=== PATIENT | male | born 1975 | race Caucasian/White ===

== ENCOUNTER 2017-03-27 21:23 | Inpatient (IN) | payer OTHER, SELFPAY ==
[2017-03-27 22:02] LABS: PTT 27.3 SEC (22.9-36.1); Prothrombin Time 13.3 SEC (12.0-14.7)
[2017-03-27 22:06] LABS: ALT (SGPT) 27 U/L (8-55); AST (SGOT) 32 U/L (5-34); Acetaminophen Less than 6.0 mcg/mL (10.0-30.0); Alkaline Phosphatase 117 U/L (40-150); Anion Gap 17 mmol/L (10-20); BUN (Urea Nitrogen) 4 mg/dL (8.9-20.6); Bilirubin, Total 0.3 mg/dL (0.2-1.2); Calc. Creatinine Clearance 0 mL/min (70-130); Calcium 9.4 mg/dL (7.8-10.44); Carbon Dioxide 22 mmol/L (22-29); Chloride 105 mmol/L (98-107); Estimated GFR-MDRD Greater than 90; Globulin 3.7 g/dL (2.4-3.5); Salicylate Less than 8.0 mg/dL (15.0-30.0)
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
[2017-03-27 22:30] LABS: #Basophils 0.1 thou/uL (0.0-0.2); #Eosinphils 0.1 thou/uL (0.0-0.7); #Monocytes 0.6 thou/uL (0.11-0.59); #Neutrophils 5.3 thou/uL (1.40-6.50); %Basophils 1.1 % (0.0-1.0); %Eosinophils 0.8 % (0.0-10.0); %Monocytes 6.9 % (0.0-10.0); Hematocrit 52.6 % (42.0-52.0); Macrocytosis SLIGHT = 6-15 cells (100X) (0-5/hpf); Mean Platelet Volume 6.5 fL (7.4-10.4); Red Blood Cell (RBC) Count 4.86 mill/uL (4.70-6.10)
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
[2017-03-27] MEDS ORDERED: Ketorolac Tromethamine 30 MG/ML VIAL ONE ×2 (23:47→23:48)
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
[2017-03-28] MEDS ORDERED: Dextrose 50% Abboject 50 ML SYRINGE SLOW IVP PRN (00:50)
[2017-03-28] MEDS ORDERED: Morphine Sulfate 2 MG/ML SYRINGE IVP PRN (00:50)
[2017-03-28] MEDS ORDERED: Ondansetron ODT 4 MG TAB PO PRN (00:50)
[2017-03-28] MEDS ORDERED: Acetaminophen 1,000 MG in Premix Bag 1 BAG IVPB SCH (00:50)
[2017-03-28] MEDS ORDERED: Ondansetron HCl/PF 4 MG/2 ML Vial IVP PRN (00:50)
[2017-03-28] MEDS ORDERED: Promethazine HCl 25 MG/ML VIAL IM PRN ×2 (00:50)
[2017-03-28] MEDS ORDERED: Dextrose 5% in Water 1,000 ML IV PRN (00:50)
[2017-03-28] MEDS: Sodium Chloride 0.9% 1,000 ML IV SCH ×3 (02:19→17:27)
[2017-03-28] MEDS: Clindamycin/D5W 900 MG in Premix Bag 1 BAG IVPB SCH ×3 (05:21→22:01)
[2017-03-28 06:16] LABS: #Basophils 0.1 thou/uL (0.0-0.2); #Eosinphils 0.1 thou/uL (0.0-0.7); #Lymphocytes 3.2 thou/uL (1.20-3.40); #Neutrophils 5.4 thou/uL (1.40-6.50); %Basophils 0.8 % (0.0-1.0); %Eosinophils 0.7 % (0.0-10.0); %Lymphocytes 32.8 % (21.0-51.0); %Monocytes 9.9 % (0.0-10.0); Hematocrit 48.9 % (42.0-52.0); Mean Platelet Volume 6.2 fL (7.4-10.4); Red Blood Cell (RBC) Count 4.48 mill/uL (4.70-6.10); White Blood Cell (WBC) Count 9.7 thou/uL (4.8-10.8)
[2017-03-28 06:39] LABS: Anion Gap 13 mmol/L (10-20); BUN (Urea Nitrogen) Less than 4 mg/dL (8.9-20.6); Calc. Creatinine Clearance 108 mL/min (70-130); Calcium 8.6 mg/dL (7.8-10.44); Carbon Dioxide 25 mmol/L (22-29); Chloride 110 mmol/L (98-107); Estimated GFR-MDRD Greater than 90
[2017-03-28] MEDS: Famotidine/PF 20 mg/2ml Vial SLOW IVP SCH ×2 (08:24→20:38)
[2017-03-28] MEDS: Famotidine 20 MG TAB PO SCH ×2 (08:26→20:39)
[2017-03-28] MEDS ORDERED: Ketorolac Tromethamine 30 MG/ML VIAL IVP SCH (11:15)
[2017-03-28] MEDS: Ketorolac Tromethamine 30 MG/ML VIAL IVP SCH (17:29)
[2017-03-29] MEDS: Ketorolac Tromethamine 30 MG/ML VIAL IVP SCH ×5 (00:03→23:18)
[2017-03-29] MEDS: Sodium Chloride 0.9% 1,000 ML IV SCH ×4 (02:41→21:36)
[2017-03-29] MEDS: Clindamycin/D5W 900 MG in Premix Bag 1 BAG IVPB SCH ×3 (06:01→21:35)
[2017-03-29] MEDS: Famotidine/PF 20 mg/2ml Vial SLOW IVP SCH ×2 (08:11→21:35)
[2017-03-29] MEDS: Famotidine 20 MG TAB PO SCH ×2 (09:49→21:35)
[2017-03-29] MEDS ORDERED: Clindamycin/D5W 900 mg/50 ml Premix Bag ONE (14:15)
[2017-03-29] MEDS ORDERED: Bacitracin Zinc Ointment 30 gm TUBE ONE (15:05)
[2017-03-29] MEDS ORDERED: Chlorhexidine Gluconate 15 ML UDCUP SSP ONE (15:05)
[2017-03-29] MEDS ORDERED: Lidocaine 1% w/Epinephrine 1:200K 30 ML VIAL ONE (15:05)
[2017-03-29] MEDS ORDERED: Fentanyl 100 MCG/2 ML VIAL ONE ×3 (15:17→20:41)
[2017-03-29] MEDS ORDERED: Midazolam HCl 2 mg/2 ml Vial ONE (15:17)
[2017-03-29] MEDS ORDERED: Lidocaine 1% PF 5 ML VIAL ONE (15:46)
[2017-03-29] MEDS ORDERED: Dexamethasone 20 MG/5 ML VIAL ONE (15:46)
[2017-03-29] MEDS ORDERED: Propofol 200 MG/20 ML VIAL ONE (15:46)
[2017-03-29] MEDS ORDERED: Succinylcholine Chloride 20 MG/ML 10 ml SYRINGE FS ONE (15:46)
[2017-03-29] MEDS ORDERED: Oxymetazoline HCl 0.05% ( 15 ML ) ONE (15:51)
[2017-03-29] MEDS ORDERED: Phenylephrine 1% Nasal Spray 15 ML BOT ONE (15:54)
[2017-03-29] MEDS ORDERED: Meperidine HCl/PF 25 MG/ML VIAL ONE (20:34)
[2017-03-29] MEDS ORDERED: Promethazine HCl 25 MG/ML VIAL IM PRN (20:37)
[2017-03-29] MEDS ORDERED: Ondansetron HCl/PF 4 MG/2 ML Vial IVP PRN (20:37)
[2017-03-29] MEDS ORDERED: Promethazine HCl 25 MG/ML VIAL SLOW IVP PRN (20:37)
[2017-03-29] MEDS: Chlorhexidine Gluconate 15 ML UDCUP SSP SCH (22:01)
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
[2017-03-30] MEDS: Ketorolac Tromethamine 30 MG/ML VIAL IVP SCH ×2 (05:03→13:28)
[2017-03-30] MEDS: Clindamycin/D5W 900 MG in Premix Bag 1 BAG IVPB SCH ×2 (05:03→14:05)
[2017-03-30] MEDS: Sodium Chloride 0.9% 1,000 ML IV SCH (05:03)
--- NOTE | 2017-03-30 08:03 | CT ---
PRELIMINARY REPORT/[facility]/EMERGENCY AFTER HOURS PROCEDURE: EXAM: CT Maxillofacial Without Intravenous Contrast CLINICAL HISTORY: 42 years old, male; Condition or disease; Other: Mandibular FX; Prior surgery; Surgery date: Postope rative (0-2 days); Surgery type: S/P transfacial orif bilateral mandibular FX TECHNIQUE: Axial computed tomography images of the face without intravenous contrast. Coronal and sagittal reformatted images were created and reviewed. COMPARISON: No relevant prior studies available. FINDINGS: Status post open reduction/internal fixation of bilateral mandibular fractures. Mild residual angula tion of the left-sided findings fracture fragment directed medially. Residual air and small left-mary ann ed hematoma/fluid noted. Fracture lines remain visible in the horizontal rami bilaterally extending thr ough the alveolar nerve canals The temporomandibular joints are grossly intact. The orbits are intact. There is mild mucosal thicke galindo in the paranasal sinus. Secretions in the left sphenoid sinus noted The visualized intracranial contents are unremarkable IMPRESSION: Status post internal fixation of bilateral mandibular fractures with mild residual angulation of the leftsided ascending ramus fragment as noted Thank you for allowing us to participate in the care of your patient. Dictated and Authenticated by: Darrell Tirado MD 03/30/2017 12:35 AM Central Time ([place] \T\ [place]) FINAL REPORT EMERGENCY AFTER HOURS CT OF THE FACE WITHOUT CONTRAST: Date: 03/29/17 COMPARISON: 03/27/17. FINDINGS/IMPRESSION: I agree with the findings and impression given in the preliminary report per [facility] physician. The pat ient is status post open reduction and internal fixation of the bilateral mandibular fractures with plates and screws. There is better alignment of the fractures compared to the preoperative CT. POS: [facility]
[2017-03-30] MEDS: Famotidine/PF 20 mg/2ml Vial SLOW IVP SCH (08:11)
[2017-03-30] MEDS: Famotidine 20 MG TAB PO SCH (08:48)
[2017-03-30] MEDS: Chlorhexidine Gluconate 15 ML UDCUP SSP SCH (09:21)
[2017-03-30] MEDS ORDERED: traMADol HCl 50 MG TAB PO PRN ×2 (09:38)
[2017-03-30] MEDS ORDERED: Acetaminophen 500 MG TAB PO PRN (09:40)
[2017-03-30] MEDS ORDERED: Acetaminophen/Codeine Oral Solution PO PRN (12:17)
[2017-03-30 12:23] VITALS: BP 111/69; TEMP 98.2
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
--- NOTE | 2017-03-31 14:59 | EKG ---
Test Reason : Blood Pressure : / mmHG Vent. Rate : 100 BPM Atrial Rate : 100 BPM P-R Int : 122 ms QRS Dur : 096 ms QT Int : 348 ms P-R-T Axes : 086 078 066 degrees QTc Int : 448 ms Normal sinus rhythm Normal ECG Confirmed by LARISSA NAVAS D.O. ([id number]), general expeditor STEPHANIE MOE ([id number]) on 03/31/2017 2:59:04 PM Referred By: Confirmed By:LARISSA NAVAS D.O.
== END 2017-03-30 16:55 | disposition home or self-care (01) | DRG 131 ==
LOC: ERS 21:23 → SURG A 03-28 00:29
PROVIDERS: ADMIT Specialist; ATTEND Specialist
PROC: 0NSV04Z Reposition Left Mandible with Internal Fixation Device, Open Approach (ICD-10-PCS; principal; 2017-03-29)
PROC: 0NST04Z Reposition Right Mandible with Internal Fixation Device, Open Approach (ICD-10-PCS; 2017-03-29)
PROC: 0CQ40ZZ Repair Buccal Mucosa, Open Approach (ICD-10-PCS; 2017-03-29)
DX: S02.602A Fracture of unspecified part of body of left mandible, initial encounter for closed fracture (principal); S06.0X1A Concussion with loss of consciousness of 30 minutes or less, initial encounter; S02.601A Fracture of unspecified part of body of right mandible, initial encounter for closed fracture; S02.622A Fracture of subcondylar process of left mandible, initial encounter for closed fracture; S02.66XA Fracture of symphysis of mandible, initial encounter for closed fracture; S01.502A Unspecified open wound of oral cavity, initial encounter; Y04.2XXA Assault by strike against or bumped into by another person, initial encounter; Y92.481 Parking lot as the place of occurrence of the external cause; F10.129 Alcohol abuse with intoxication, unspecified; F17.290 Nicotine dependence, other tobacco product, uncomplicated; G89.29 Other chronic pain; M79.604 Pain in right leg; K08.109 Complete loss of teeth, unspecified cause, unspecified class
CPT/HCPCS: 36415; 70450; 70486; 71010; 72125; 80048; 80053; 80307; 85025; 85610; 85730; 86850; 86900; 86901; 93005; 96365; 96375; 96376; C1713; J0131; J1100; J1885; J2001; J2175; J2250; J2270; J2405; J2704; J3010; J3490; S0028

== ENCOUNTER 2017-04-02 17:01 | Inpatient (IN) | payer OTHER ==
[2017-04-02] MEDS ORDERED: Iopamidol 370 76% 100 ML VIAL ONE (17:06)
[2017-04-02 17:34] LABS: PTT 29.7 SEC (22.9-36.1); Prothrombin Time 12.8 SEC (12.0-14.7)
[2017-04-02 17:35] LABS: #Basophils 0.1 thou/uL (0.0-0.2); #Eosinphils 0.2 thou/uL (0.0-0.7); #Lymphocytes 2.2 thou/uL (1.20-3.40); #Monocytes 1.2 thou/uL (0.11-0.59); #Neutrophils 13.1 thou/uL (1.40-6.50); %Basophils 0.7 % (0.0-1.0); %Eosinophils 1.2 % (0.0-10.0); %Lymphocytes 12.8 % (21.0-51.0); %Monocytes 7.2 % (0.0-10.0); Anisocytosis SLIGHT = 6-15 cells (100X) (0-5/hpf); Hematocrit 40.3 % (42.0-52.0); Macrocytosis SLIGHT = 6-15 cells (100X) (0-5/hpf); Mean Platelet Volume 7.9 fL (7.4-10.4); Red Blood Cell (RBC) Count 4.01 mill/uL (4.70-6.10); White Blood Cell (WBC) Count 16.7 thou/uL (4.8-10.8)
[2017-04-02 18:15] LABS: Anion Gap 14 mmol/L (10-20); BUN (Urea Nitrogen) 10 mg/dL (8.9-20.6); Calc. Creatinine Clearance 0 mL/min (70-130); Calcium 9.2 mg/dL (7.8-10.44); Carbon Dioxide 25 mmol/L (22-29); Chloride 101 mmol/L (98-107); Estimated GFR-MDRD Greater than 90
--- NOTE | 2017-04-02 20:08 | CT ---
POST CONTRAST SOFT TISSUE NECK CT: Comparison: Facial bone CT, 03-30-17, 03-27-15 History: Possible infection, swelling of the neck. Fluid drainage when dressing came off. Patient don s undergone surgery. Technique: Post contrast soft tissue neck CT performed in the axial plane. Reformatted images are bowers bmitted for interpretation. FINDINGS: Visualized brain parenchyma is unremarkable. Adequate aeration of the visualized sinuses and mastoid air cells. There is mucosal prominence at the level of the nasopharynx. No obvious masses in the oral cavity. M idline fatty roof of the tongue is preserved. Epiglottis has a normal caliber. Preepiglottic fat dem onstrates mild edema. There is edematous change in the left submandibular gland. There is mild edematous change in the lef t submandibular gland. The right submandibular gland and carotid gland are unremarkable. Thyroid gla nd is also unremarkable. Symmetric attenuation of sternocleidomastoid muscles. There are enlarged bilateral soft tissue neck lymph nodes. Circulation Man large left level II lymph node measures 1.3 x 0.9. Enlarged right level II lymph node measures 1.0 x 1.0 cm. Grossly, the great vessels of the neck are patent. Cervical spine vertebral body height is maintained. No fracture or malalignment. No significant cent ral canal stenosis. Evaluation is limited due to technique. Upper mediastinum and lung apices are unremarkable for acute process. Nonspecific emphysematous brenner ges in the lung apices and bilateral apical scarring. There is evidence of internal fixation hardware along the left and right mandible. Mandibular fractu re lucencies are present. There is extensive subcutaneous emphysema and fluid involving the soft tis sues overlying the mandible. Findings are presumed to be post-operative. The fluid collections along the midline mandibular soft tissue measures 5.6 x 2.1 cm. There is incomplete peripheral enhancemen t. Small foci of air noted. Fluid and air tracks along multiple fascial planes into the right and le ft submandibular region, left street and building decorator space. There is edema involving the left, and to a lesser e xtent, left street and building decorator muscles. Findings are presumed to be post-operative. However, an infected flu id collection cannot be excluded. There is induration of the overlying subcutaneous fat. There is internal fixation and hardware at the level of the left mandibular ramus. IMPRESSION: 1. Redemonstration of the mandibular fracture with interval instrumentation and placement of interna l fixation hardware. 2. Extensive edema, fluid, and air in the mandibular and facial soft tissues which may represent pos t-surgical change. However, there is some peripheral enhancement. The possibility of an infected flu id collection cannot be completely excluded. Clinical correlation is essential. 3. Enlarged bilateral soft tissue neck lymph nodes which are presumed to be reactive. POS: [facility]
[2017-04-02] MEDS ORDERED: Fentanyl 100 MCG/2 ML VIAL ONE (20:35)
[2017-04-02] MEDS ORDERED: Clindamycin/D5W 900 mg/50 ml Premix Bag ONE (20:54)
[2017-04-02] MEDS ORDERED: Dexamethasone 20 MG/5 ML VIAL ONE (21:06)
[2017-04-02] MEDS ORDERED: Ondansetron HCl/PF 4 MG/2 ML Vial ONE (21:06)
[2017-04-02] MEDS ORDERED: Succinylcholine Chloride 20 MG/ML 10 ml SYRINGE FS ONE (21:06)
[2017-04-02] MEDS ORDERED: Ketorolac Tromethamine 30 MG/ML VIAL ONE (21:06)
[2017-04-02] MEDS ORDERED: Lidocaine 2% PF 10 ML AMP (For Epidural Use) ONE (21:06)
[2017-04-02] MEDS ORDERED: Bacitracin Zinc Ointment 30 gm TUBE ONE (21:12)
[2017-04-02] MEDS ORDERED: Promethazine HCl 25 MG/ML VIAL IM PRN (21:49)
[2017-04-02] MEDS ORDERED: Promethazine HCl 25 MG/ML VIAL SLOW IVP PRN (21:49)
[2017-04-02] MEDS ORDERED: Ondansetron HCl/PF 4 MG/2 ML Vial IVP PRN (21:49)
[2017-04-02] MEDS ORDERED: Ondansetron HCl/PF 4 MG/2 ML Vial SLOW IVP PRN (22:00)
[2017-04-02] MEDS ORDERED: Clindamycin/D5W 900 MG in Premix Bag 1 BAG IVPB SCH (22:00)
--- NOTE | 2017-04-02 22:50 | PDOC.PN ---
- Subjective Encounter Start Date: 04/02/17 Encounter Start Time: 22:48 Was asked to see pt re:elevated blood pressure. Pt reports drinking 2-3 alcoholic drinks a day. Denies chest pain, shortness of breath, fevers or chills. No nausea or vomiting. - Objective MAR Reviewed: Yes Result Diagrams: 04/02/17 17:21 04/02/17 17:21 Phys Exam - Physical Examination Constitutional: NAD HEENT: moist MMs Jaw dressing Respiratory: no wheezing, no rales, no rhonchi, clear to auscultation bilateral Cardiovascular: RRR, no rub Gastrointestinal: soft Psychiatric: normal affect Dx/Plan (1) Elevated blood pressure reading Code(s): R03.0 - ELEVATED BLOOD-PRESSURE READING, W/O DIAGNOSIS OF HTN Status : Acute (2) Alcohol abuse Code(s): F10.10 - ALCOHOL ABUSE, UNCOMPLICATED Status: Chronic - Plan * . Start PRN IV hydralazine. Start ASE protocol. Tried to intake counselor pt re: alcohol cessation, he is currently upset, yelling profanities. DVT prophylaxis and pain management per surgical service. Review of Systems - Review of Systems Constitutional: negative: Fever, Chills Respiratory: negative: Cough, Dry, Shortness of Breath Cardiovascular: negative: Chest Pain, Palpitations Gastrointestinal: negative: Nausea, Vomiting - Medications/Allergies Allergies/Adverse Reactions: Allergies Allergy/AdvReac Type Severity Reaction Status Date / Time No Known Allergies Allergy Verified 04/19/13 13:04 Medications: Current Medications Hydrocodone Bitart/Acetaminophen ([place] 7.5/325) 1 tab PO Q4H PRN PRN Reason: Moderate Pain (4-6) Chlorhexidine Gluconate (Chlorhexidine Gluconate) 15 ml SSP TID [facility] Fentanyl (Pacu-Sublimaze) 50 mcg SLOW IVP Q10MIN PRN PRN Reason: Moderate to Severe Pain (6-10) Stop: 04/03/17 00:49 Hydralazine HCl (Apresoline) 10 mg SLOW IVP Q6H PRN PRN Reason: SBP Greater Than 170 Potassium Chloride/Dextrose/Sod Cl (D5 0.9% Ns W/ 20 Meq Kcl) 1,000 mls @ 110 mls/hr IV .Q9H6M [facility] Clindamycin Phosphate/Dextrose (900 mg/ Device) 50 mls @ 100 mls/hr IVPB Q8HR [facility] Ibuprofen (Motrin) 800 mg PO Q6HR [facility] Morphine Sulfate (Morphine Sulfate) 2 mg SLOW IVP Q2H PRN PRN Reason: Severe Pain (7-10) Ondansetron HCl (Pacu-Zofran) 4 mg IVP ONE PRN PRN Reason: Nausea/Vomiting Stop: 04/03/17 00:49 Ondansetron HCl (Zofran) 4 mg SLOW IVP Q6H PRN PRN Reason: Nausea/Vomiting Promethazine HCl (Pacu-Phenergan) 6.25 mg SLOW IVP ONE PRN PRN Reason: Nausea/Vomiting Stop: 04/03/17 00:49 Promethazine HCl (Pacu-Phenergan) 6.25 mg IM ONE PRN PRN Reason: Nausea/Vomiting Stop: 04/03/17 00:49
[2017-04-02 22:59] VITALS: BMI 17.2
[2017-04-02] MEDS: D5 0.9% NS w/ 20 mEq KCl 1,000 ML IV SCH (23:11)
[2017-04-02] MEDS: HYDROcodone/Acetaminophen 7.5/325 mg Tablet PO PRN (23:11)
[2017-04-02] MEDS: Ibuprofen 800 MG TAB PO SCH (23:11)
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
[2017-04-03] MEDS: D5 0.9% NS w/ 20 mEq KCl 1,000 ML IV SCH ×2 (01:36→17:05)
[2017-04-03] MEDS ORDERED: Diazepam 5 MG TAB PO PRN (01:56)
[2017-04-03] MEDS ORDERED: Diazepam 5 MG TAB PO SCH (02:00)
[2017-04-03] MEDS ORDERED: Thiamine HCl 200 MG/2 ML VIAL IM SCH (02:00)
[2017-04-03] MEDS: Ibuprofen 800 MG TAB PO SCH ×4 (05:02→23:35)
[2017-04-03] MEDS: HYDROcodone/Acetaminophen 7.5/325 mg Tablet PO PRN ×4 (05:02→21:11)
[2017-04-03] MEDS: Clindamycin/D5W 900 MG in Premix Bag 1 BAG IVPB SCH ×3 (05:03→21:12)
[2017-04-03 05:33] LABS: #Lymphocytes 0.9 thou/uL (1.20-3.40); #Monocytes 0.1 thou/uL (0.11-0.59); %Lymphocytes 7.8 % (21.0-51.0); %Monocytes 1.1 % (0.0-10.0); Hematocrit 41.8 % (42.0-52.0); Mean Platelet Volume 6.2 fL (7.4-10.4); Red Blood Cell (RBC) Count 3.84 mill/uL (4.70-6.10); White Blood Cell (WBC) Count 12.1 thou/uL (4.8-10.8)
[2017-04-03] MEDS: Folic Acid 1 MG TAB PO SCH (08:39)
[2017-04-03] MEDS: Multivitamin W/ Minerals 1 TAB PO SCH (08:39)
[2017-04-03] MEDS: Chlorhexidine Gluconate 15 ML UDCUP SSP SCH ×3 (08:40→21:12)
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
--- NOTE | 2017-04-03 13:37 | PRG ---
DATE OF SERVICE: 04/03/2017 TIME: 12:42 SUBJECTIVE: The patient is postoperative day #1 status post I&D washout of submental/submandibular wounds. No acute 24 hour events. The patient is voiding, ambulating, tolerating p.o. OBJECTIVE: VITAL SIGNS: Vital signs have been stable. He has been afebrile in the last 24 hours. WOUND: The wound has slightly less erythema compared to yesterday. No purulent drainage at this point. Drains are in place. The wound is quite tender around the incision line; however, looks much better than yesterday evening. Opening is good. Left retromandibular wound clean, dry and intact. White count today is 12, down from 16. Blood cultures grew out gram negative rods. ASSESSMENT: Postoperative day #1, doing well. PLAN: Continue IV antibiotics. Dressing changes 2 times a day. I appreciate hospitalist consultation for DT prophylaxis. TIERRA
--- NOTE | 2017-04-03 17:09 | PDOC.PN ---
- Subjective Encounter Start Date: 04/03/17 Encounter Start Time: 14:25 Subjective: f/u for ETOH abuse and admission for submental abscess post I&D. -: No reported withdrawal seizures. Pt states some pain under jaw. - Objective MAR Reviewed: Yes Vital Signs & Weight: Vital Signs (12 hours) Temp Pulse Resp BP Pulse Ox 04/03/17 15:30 98.2 F 78 16 132/75 96 04/03/17 12:35 98 F 75 18 106/70 95 04/03/17 08:00 98 F 73 16 04/03/17 07:45 98 F 73 16 121/79 96 Weight Admit Weight 120 lb Weight 120 lb I&O: 04/02/17 04/03/17 04/04/17 06:59 06:59 06:59 Intake Total 2220 Balance 2220 Result Diagrams: 04/03/17 04:48 04/02/17 17:21 Additional Labs: Microbiology 04/02/17 21:14 Neck - Organism 2 Bacterial Culture - Preliminary 04/02/17 21:14 Neck - Organism 2 Gram Negative Bartolo Gram Negative Bartolo#2 04/02/17 21:14 Neck - Organism 1 Bacterial Culture - Preliminary 04/02/17 21:14 Neck - Organism 1 Gram Negative Bartolo Gram Negative Bartolo#2 Laboratory Tests 04/02/17 17:21 WBC 16.7 H Phys Exam - Physical Examination Jaw with kerlex wrap extending to scalp Neck: no JVD, supple Respiratory: no wheezing, clear to auscultation bilateral Cardiovascular: RRR Gastrointestinal: soft, non-tender, no distention, positive bowel sounds Musculoskeletal: no edema, pulses present Neurological: normal sensation, moves all 4 limbs Psychiatric: A&O x 3 Skin: normal turgor, cap refill <2 seconds Dx/Plan (1) Submental abscess Code(s): L02.01 - CUTANEOUS ABSCESS OF FACE Status: Acute (2) Alcohol abuse Code(s): F10.10 - ALCOHOL ABUSE, UNCOMPLICATED Status: Chronic - Plan continue antibiotics, social work assistant, speech therapy, out of bed/ambulate, DVT proph w/SCDs Stable overall -: Continue Clindamycin 900mg IV q8h -: Pain control as tolerated -: ASE protocol -: Ativan 1mg IV q4h prn ETOH withdrawal * .
[2017-04-04] MEDS: D5 0.9% NS w/ 20 mEq KCl 1,000 ML IV SCH ×3 (00:20→19:31)
[2017-04-04] MEDS ORDERED: Diazepam 5 MG TAB PO PRN (04:00)
[2017-04-04] MEDS: Ibuprofen 800 MG TAB PO SCH ×3 (05:22→18:05)
[2017-04-04] MEDS: Clindamycin/D5W 900 MG in Premix Bag 1 BAG IVPB SCH ×2 (05:23→14:01)
[2017-04-04 05:36] LABS: #Basophils 0.1 thou/uL (0.0-0.2); #Eosinphils 0.1 thou/uL (0.0-0.7); #Lymphocytes 3.4 thou/uL (1.20-3.40); #Monocytes 1.2 thou/uL (0.11-0.59); #Neutrophils 7.8 thou/uL (1.40-6.50); %Basophils 0.5 % (0.0-1.0); %Eosinophils 0.9 % (0.0-10.0); %Lymphocytes 27.2 % (21.0-51.0); %Monocytes 9.7 % (0.0-10.0); Red Blood Cell (RBC) Count 3.49 mill/uL (4.70-6.10); White Blood Cell (WBC) Count 12.7 thou/uL (4.8-10.8)
[2017-04-04] MEDS: Folic Acid 1 MG TAB PO SCH (08:07)
[2017-04-04] MEDS: Magnesium Oxide 400 MG TAB PO SCH (08:07)
[2017-04-04] MEDS: HYDROcodone/Acetaminophen 7.5/325 mg Tablet PO PRN ×4 (08:08→21:01)
[2017-04-04] MEDS: Chlorhexidine Gluconate 15 ML UDCUP SSP SCH ×3 (08:08→21:01)
[2017-04-04] MEDS: Multivitamin W/ Minerals 1 TAB PO SCH (08:08)
--- NOTE | 2017-04-04 08:49 | PRG ---
DATE OF SERVICE: 04/04/2017 SUBJECTIVE: This is hospital day #2 status post I&D of postoperative wound infection, no acute 24 hour events. OBJECTIVE: VITAL SIGNS: The patient's vital signs have been stable. He has been afebrile over the last 48 hours, T-max is 98.5, current pulse 64, respirations 18, O2 sat 96, blood pressure 126/76. OBJECTIVE: The patient is awake, alert and oriented x3 in no acute distress. His bandage in the submental area is soaked with purulent fluid. There is an area of wound breakdown just prior to the midline of the surgical incision where one of the drains placed. There is still a large amount of erythema around the incision line, especially towards the midline. This is maybe improved slightly since yesterday. LABORATORY DATA: White blood cell count remains stable today at 12.7. There is no current left shift. Bacterial cultures have grown Enterobacter cloacae complex. ASSESSMENT: This is a 42-year-old male status post open reduction internal fixation bilateral mandible fracture with postoperative wound infection hospital day #2. Bacterial culture of Enterobacter cloacae complex. PLAN: We will get ID input, Dr. Gomez, for directed antibiotic therapy. Continue dressing changes 3 times a day. [facility]
--- NOTE | 2017-04-04 15:23 | PDOC.PN ---
- Subjective Encounter Start Date: 04/04/17 Encounter Start Time: 15:10 Subjective: Feels ok overall. pain improved and controlled with current pain meds. -: No fever or chills. No ETOH withdrawal sx noted. - Objective MAR Reviewed: Yes Vital Signs & Weight: Vital Signs (12 hours) Temp Pulse Resp BP BP Pulse Ox 04/04/17 11:45 98.3 F 67 14 120/72 96 04/04/17 08:45 98.4 F 64 16 64 L 04/04/17 08:00 98.4 F 64 16 125/72 97 04/04/17 04:00 98.3 F 64 18 126/76 126/76 96 Weight Admit Weight 120 lb Weight 120 lb I&O: 04/03/17 04/04/17 04/05/17 06:59 06:59 06:59 Intake Total 2220 820 Balance 2220 820 Result Diagrams: 04/04/17 05:19 04/02/17 17:21 Additional Labs: Microbiology 04/02/17 21:14 Neck - Organism 2 Bacterial Culture - Preliminary 04/02/17 21:14 Neck - Organism 2 Gram Negative Bartolo Gram Negative Bartolo#2 04/02/17 21:14 Neck - Organism 2 Bacterial Culture - Preliminary 04/02/17 21:14 Neck - Organism 2 Enterobacter cloacae complex Gram Negative Bartolo#2 Alpha-Hemolytic Streptococcus Gram Negative Bartolo 04/02/17 21:14 Neck - Organism 1 Bacterial Culture - Preliminary 04/02/17 21:14 Neck - Organism 1 Gram Negative Abrtolo Gram Negative Bartolo#2 04/02/17 21:14 Neck - Organism 1 Bacterial Culture - Preliminary 04/02/17 21:14 Neck - Organism 1 Enterobacter cloacae complex Gram Negative Bartolo#2 Gram Negative Bartolo Laboratory Tests 04/02/17 17:21 WBC 16.7 H Phys Exam - Physical Examination Constitutional: NAD HEENT: PERRLA Neck: no JVD, supple Respiratory: no wheezing Cardiovascular: RRR Gastrointestinal: soft, non-tender, no distention, positive bowel sounds Musculoskeletal: no edema, pulses present Neurological: normal sensation, moves all 4 limbs Psychiatric: A&O x 3 Skin: normal turgor, cap refill <2 seconds Dx/Plan (1) Submental abscess Code(s): L02.01 - CUTANEOUS ABSCESS OF FACE Status: Acute Comment: Enterobacter, Streptococcus spp on current Clindamycin, likely would benefit from Quinolone based on sensitivities, ID consult pending (2) Alcohol abuse Code(s): F10.10 - ALCOHOL ABUSE, UNCOMPLICATED Status: Chronic Comment: Stable, continue Valium, Folate, Thiamine, no withdrawal (3) Elevated blood pressure reading Code(s): R03.0 - ELEVATED BLOOD-PRESSURE READING, W/O DIAGNOSIS OF HTN Status : Acute Comment: Likely due to pain and infection, resolved - Plan continue antibiotics, out of bed/ambulate, DVT proph w/SCDs Stable overall -: Continue supportive care and local WCT -: pain control prn -: Will sign off, call prn * .
[2017-04-04] MEDS: Meropenem 1 GM in Sodium Chloride 0.9% 100 ML IVPB SCH (16:40)
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
[2017-04-05] MEDS: Ibuprofen 800 MG TAB PO SCH ×4 (00:55→17:07)
[2017-04-05] MEDS: Meropenem 1 GM in Sodium Chloride 0.9% 100 ML IVPB SCH ×3 (00:56→17:07)
[2017-04-05] MEDS: D5 0.9% NS w/ 20 mEq KCl 1,000 ML IV SCH ×3 (02:33→19:31)
[2017-04-05] MEDS: HYDROcodone/Acetaminophen 7.5/325 mg Tablet PO PRN ×5 (02:35→21:03)
[2017-04-05 05:38] LABS: #Basophils 0.1 thou/uL (0.0-0.2); #Eosinphils 0.2 thou/uL (0.0-0.7); #Monocytes 1.2 thou/uL (0.11-0.59); #Neutrophils 6.2 thou/uL (1.40-6.50); %Lymphocytes 28.2 % (21.0-51.0); %Monocytes 10.9 % (0.0-10.0); Mean Platelet Volume 5.7 fL (7.4-10.4); Red Blood Cell (RBC) Count 3.74 mill/uL (4.70-6.10); White Blood Cell (WBC) Count 10.8 thou/uL (4.8-10.8)
[2017-04-05] MEDS: Chlorhexidine Gluconate 15 ML UDCUP SSP SCH ×3 (08:05→21:03)
[2017-04-05] MEDS: Multivitamin W/ Minerals 1 TAB PO SCH (08:05)
[2017-04-05] MEDS: Magnesium Oxide 400 MG TAB PO SCH (08:05)
[2017-04-05] MEDS: Folic Acid 1 MG TAB PO SCH (08:05)
--- NOTE | 2017-04-05 11:08 | SPC ---
LEFT UPPER EXTREMITY PICC LINE ULTRASOUND AND FLUOROSCOPIC GUIDANCE: Fluoroscopy time: 0 minutes Dose: 5 mGy*cm2 PROCEDURE: After informed consent had been obtained, the patient was placed on the interventional suite table i n a supine position. The left arm was prepped and draped in a standard sterile fashion. Topical an esthesia was achieved utilizing 1% Lidocaine and sodium bicarbonate. Under real-time sonography, th e basilic vein of the left upper extremity was accessed with a small caliber needle with venous flas h present at the needle hub. A guidewire was then advanced in to the needle, and under real-time fl uoroscopy, the guidewire was advanced to the level of the inferior vena cava to confirm appropriate venous placement. A small skin incision was made and the needle was removed. Over the guidewire, a single lumen PICC line was cut to 42 cm. The PICC line was advanced under real-time fluoroscopy ov er the guidewire to the level of the cavoatrial junction. The guidewire and [place] sheath were th en removed. PICC line flushed and aspirated appropriately and was secured to the left upper extremi ty. There were no procedural complications. IMPRESSION: Technically successful ultrasound and fluoroscopic-guided left PICC line placement, as above. POS: [facility]
--- NOTE | 2017-04-05 18:26 | PRG ---
DATE OF SERVICE: 04/05/2017 TIME: 5:46 p.m. SUBJECTIVE: No acute 24-hour events. The patient is voiding, ambulating and tolerating p.o. He do es complain of some left-sided facial, ear pain and headaches. OBJECTIVE: Vital signs are stable. He is afebrile. White blood cell count has continued to trend down. Currently, it is 10.8. Neck wound still has some mild to moderate amount of purulent dischar ge. Tissue at the incision line is starting to pink up a little bit and is slightly less erythemato us. Left preauricular wound is slightly tender, but nonerythematous and fluctuant. His opening has greatly improved over the last 2 days. I can feel no oral communication to the neck wound. The jas rodriguez is being followed now by ID and has a PICC line for IV antibiotics. He is currently on merope nem. ASSESSMENT: The patient appears to be improving slightly. PLAN: We will continue IV antibiotics per Infectious Disease, Dr. Gomez will also increase [place] 7. 5/325 1-2 tabs p.o. q.6 hours p.r.n. moderate pain.
[2017-04-06] MEDS: Ibuprofen 800 MG TAB PO SCH ×4 (01:04→17:11)
[2017-04-06] MEDS: Meropenem 1 GM in Sodium Chloride 0.9% 100 ML IVPB SCH ×3 (01:04→17:11)
[2017-04-06] MEDS: HYDROcodone/Acetaminophen 7.5/325 mg Tablet PO PRN ×3 (04:56→17:52)
[2017-04-06] MEDS: D5 0.9% NS w/ 20 mEq KCl 1,000 ML IV SCH ×2 (05:32→17:11)
[2017-04-06] MEDS: Multivitamin W/ Minerals 1 TAB PO SCH (09:03)
[2017-04-06] MEDS: Chlorhexidine Gluconate 15 ML UDCUP SSP SCH ×3 (09:03→20:21)
[2017-04-06] MEDS: Folic Acid 1 MG TAB PO SCH (09:03)
[2017-04-06] MEDS: Magnesium Oxide 400 MG TAB PO SCH (09:03)
--- NOTE | 2017-04-06 21:07 | PRG ---
DATE OF SERVICE: 04/06/2017 SUBJECTIVE: Still with moderate pain, but no headaches, shortness of breath, chest pain, no abdomin al pain or diarrhea, no genitourinary symptoms. PHYSICAL EXAMINATION: VITAL SIGNS: Normal except for transient elevation in systolic blood pressure. HEENT: Mandibular area covered with dressing, which was not removed. LUNGS: Clear. HEART: S1, S2, regular rate. ABDOMEN: Soft, not distended. LABORATORY: White cell count down to 10.8, hemoglobin 13, platelets 280. Chemistry normal. Serolo gy negative for syphilis, hepatitis C, and HIV. Microbiology with Enterococcus, Klebsiella, 3 different anaerobes. ASSESSMENT AND DISCUSSION: Mandibular fracture fixation, no postop infection, polymicrobial, to be discharged on [facility] and date of therapy will be sometime in first or second week of May. The patient reportedly is going to come daily from [facility] to get treated here in the hospital. We will see how well that is going to turn out worker to be.
[2017-04-07] MEDS: HYDROcodone/Acetaminophen 7.5/325 mg Tablet PO PRN ×4 (00:24→18:27)
[2017-04-07] MEDS: Ibuprofen 800 MG TAB PO SCH ×4 (00:24→17:28)
[2017-04-07] MEDS: Meropenem 1 GM in Sodium Chloride 0.9% 100 ML IVPB SCH ×3 (00:26→17:28)
[2017-04-07] MEDS: Chlorhexidine Gluconate 15 ML UDCUP SSP PRN (00:32)
[2017-04-07] MEDS: D5 0.9% NS w/ 20 mEq KCl 1,000 ML IV SCH ×3 (03:23→21:18)
[2017-04-07 06:08] LABS: #Basophils 0.1 thou/uL (0.0-0.2); #Eosinphils 0.4 thou/uL (0.0-0.7); #Lymphocytes 3.1 thou/uL (1.20-3.40); #Monocytes 1.1 thou/uL (0.11-0.59); #Neutrophils 4.1 thou/uL (1.40-6.50); %Basophils 1.5 % (0.0-1.0); %Eosinophils 4.3 % (0.0-10.0); %Lymphocytes 35.3 % (21.0-51.0); %Monocytes 12.1 % (0.0-10.0); Hematocrit 48.9 % (42.0-52.0); Mean Platelet Volume 5.7 fL (7.4-10.4); Red Blood Cell (RBC) Count 4.52 mill/uL (4.70-6.10); White Blood Cell (WBC) Count 8.8 thou/uL (4.8-10.8)
[2017-04-07] MEDS: Multivitamin W/ Minerals 1 TAB PO SCH (09:13)
[2017-04-07] MEDS: Folic Acid 1 MG TAB PO SCH (09:13)
[2017-04-07] MEDS: Chlorhexidine Gluconate 15 ML UDCUP SSP SCH ×3 (09:13→21:14)
[2017-04-07] MEDS: Magnesium Oxide 400 MG TAB PO SCH (09:15)
[2017-04-08] MEDS: Ibuprofen 800 MG TAB PO SCH ×5 (00:25→23:49)
[2017-04-08] MEDS: HYDROcodone/Acetaminophen 7.5/325 mg Tablet PO PRN ×4 (00:25→19:54)
[2017-04-08] MEDS: Meropenem 1 GM in Sodium Chloride 0.9% 100 ML IVPB SCH ×3 (00:32→16:51)
[2017-04-08] MEDS: D5 0.9% NS w/ 20 mEq KCl 1,000 ML IV SCH ×3 (05:50→23:50)
[2017-04-08] MEDS: Magnesium Oxide 400 MG TAB PO SCH (08:12)
[2017-04-08] MEDS: Multivitamin W/ Minerals 1 TAB PO SCH (08:12)
[2017-04-08] MEDS: Chlorhexidine Gluconate 15 ML UDCUP SSP SCH ×3 (08:12→19:59)
[2017-04-08] MEDS: Folic Acid 1 MG TAB PO SCH (08:12)
--- NOTE | 2017-04-08 11:51 | PRG ---
DATE OF SERVICE: 04/08/2017 TIME: 10:56 a.m. SUBJECTIVE: The patient is sitting in bed comfortably in no acute distress. He reports he is voiding, ambulating, and tolerating p.o. intake within normal limits, no acute events overnight. He has reported over the last 24 hours persistent tenderness to palpation and pain along the left preauricular, buccal and retromandibular area consistent with the incision for the ORIF of his left subcondylar fracture. OBJECTIVE: VITAL SIGNS: Stable. He is afebrile. LABORATORY DATA: White blood cell count had normalized at 8.8 on 04/07/2017. Over the last 24 hours, there has been no increase in edema or erythema. The inferior border of the mandible is palpable. No submandibular tenderness to palpation. His neck wound is clean and dry. There is no purulent drainage from his wound. There is no exposed bone or hardware within the depth of the wound. The tissue is pink and healthy at this time, no erythema or necrosis appreciated. His opening is within normal limits. ASSESSMENT: Ten days status post open reduction internal fixation bilateral mandible fractures. The patient is showing slow improvement. PLAN: Continue IV antibiotics per Dr. Gomez is recommendations. We will continue to monitor the left preauricular wound and area closely. With worsening symptoms, we will plan for CT scan tomorrow. The patient can transition to a normal diet, but counseled him specifically on soft, non-chew foods only. Continue ambulation several times a day throughout the hospital. Could use his PICC line for blood draw. TIERRA
[2017-04-09] MEDS: Meropenem 1 GM in Sodium Chloride 0.9% 100 ML IVPB SCH ×3 (00:26→17:05)
[2017-04-09] MEDS: HYDROcodone/Acetaminophen 7.5/325 mg Tablet PO PRN ×4 (01:46→20:31)
[2017-04-09] MEDS ORDERED: ISOVUE-370 76%-LOCM 1 ML ONE (04:07)
[2017-04-09 04:55] LABS: #Basophils 0.1 thou/uL (0.0-0.2); #Eosinphils 0.4 thou/uL (0.0-0.7); #Lymphocytes 2.5 thou/uL (1.20-3.40); #Monocytes 1.2 thou/uL (0.11-0.59); #Neutrophils 4.1 thou/uL (1.40-6.50); %Basophils 1.3 % (0.0-1.0); %Eosinophils 4.7 % (0.0-10.0); %Lymphocytes 30.4 % (21.0-51.0); %Monocytes 14.9 % (0.0-10.0); Hematocrit 47.3 % (42.0-52.0); Mean Platelet Volume 5.8 fL (7.4-10.4); Red Blood Cell (RBC) Count 4.36 mill/uL (4.70-6.10); White Blood Cell (WBC) Count 8.4 thou/uL (4.8-10.8)
[2017-04-09] MEDS: Ibuprofen 800 MG TAB PO SCH ×5 (05:29→23:00)
[2017-04-09] MEDS: Multivitamin W/ Minerals 1 TAB PO SCH (08:35)
[2017-04-09] MEDS: Folic Acid 1 MG TAB PO SCH (08:35)
[2017-04-09] MEDS: Magnesium Oxide 400 MG TAB PO SCH (08:35)
[2017-04-09] MEDS: Chlorhexidine Gluconate 15 ML UDCUP SSP SCH ×3 (10:19→20:31)
[2017-04-09] MEDS: D5 0.9% NS w/ 20 mEq KCl 1,000 ML IV SCH ×2 (11:10→18:21)
--- NOTE | 2017-04-09 13:49 | PRG ---
DATE OF SERVICE: 04/09/2017 TIME: 11:04 a.m. SUBJECTIVE: The patient resting in bed comfortably, no acute events overnight. Reports tolerating soft diet without issues, p.o. intake within normal limits , ambulating several times a day throughout the hospital. He reports worsening in his pain across the left side of his face, now extending up into the temporal region anteriorly along the zygomatic arch and slightly posterior to the left mandibular angle. No drainage, clicking, popping or crepitus reported. OBJECTIVE: VITAL SIGNS: Stable, afebrile. LABORATORY DATA: White blood cell count 8.4. Clinically, the submandibular wound shows improvement since yesterday; still pink, healthy tissue within the wound, the borders of the skin along, this area is pink and healthy as well. No erythema, edema, no drainage from the wound. Again, no exposed bone or hardware. No change in the clinical exam of the left preauricular and retromandibular area. There is no erythema. The inferior border of the mandible is still palpable. No submandibular edema. There is tenderness to palpation now in the preauricular lesion along the left zygomatic arch extending to the temporal area. No fluctuance is appreciated. The wound or incision line from the surgery is healthy and healing within normal limits. ASSESSMENT AND PLAN: An 11 days status post open reduction and internal fixation of bilateral mandible fracture. We will get a CT of the face with contrast to evaluate the hardware and soft tissues along the left side of the face. The patient will be n.p.o. at this time, in case operative intervention is indicated due to potential infection/loose hardware vs sialocele. Addendum 8:45PM CT Face shows a 1x1cm fluid collection within tail of parotid gland extending to inferior aspect of mandibular hardware along mandibular ramus, saliva vs purulence Patient prepped with betadyne, lidocaine injection, aspiration with 21g needle clear secretions and blood, no purulence appreciated. Clinically consistent with sialocele. Will continue to monitor. [facility]
--- NOTE | 2017-04-09 15:33 | CT ---
CT FACE WITH IV CONTRAST: History: Jaw abscess. Follow up. Comparison: 04-02-17 FINDINGS: Post-operative changes of the mandible are again demonstrated. There has been interval evacuation of the submental abscess. Small subcutaneous pockets of gas and fluid remain without a residual measur able fluid collection. Lobulated collections of fluid associated with the tail of the left parotid g land are present, measuring up to 1.4 cm greatest diameter. Reactive appearing lymph nodes remain al ashley each side of the neck. Airway is patent. IMPRESSION: 1. Interval surgical drainage of the submental abscess without residual abscess cavity. Cystic struc tures are now associated with the tail of the left parotid gland and could represent cystic dilatati on of the ducts or developing infection. Clinical correlation regarding the left parotid tail is req uired. POS: ADOLFO
[2017-04-09] MEDS ORDERED: Lidocaine 1% w/Epinephrine 1:200K 30 ML VIAL FS SCH (17:00)
[2017-04-09] MEDS ORDERED: Fentanyl 100 MCG/2 ML VIAL SLOW IVP SCH (21:15)
[2017-04-10] MEDS: Meropenem 1 GM in Sodium Chloride 0.9% 100 ML IVPB SCH ×3 (00:30→17:48)
[2017-04-10] MEDS: D5 0.9% NS w/ 20 mEq KCl 1,000 ML IV SCH ×3 (00:43→21:09)
[2017-04-10] MEDS: HYDROcodone/Acetaminophen 7.5/325 mg Tablet PO PRN ×3 (03:46→21:36)
[2017-04-10] MEDS: Ibuprofen 800 MG TAB PO SCH ×3 (06:26→17:50)
[2017-04-10] MEDS ORDERED: Clopidogrel Bisulfate 75 MG TAB ONE (06:45)
[2017-04-10] MEDS: Folic Acid 1 MG TAB PO SCH (08:23)
[2017-04-10] MEDS: Magnesium Oxide 400 MG TAB PO SCH (08:23)
[2017-04-10] MEDS: Chlorhexidine Gluconate 15 ML UDCUP SSP SCH ×3 (08:23→20:08)
[2017-04-10] MEDS: Multivitamin W/ Minerals 1 TAB PO SCH (08:23)
[2017-04-10] MEDS: Chlorhexidine Gluconate 15 ML UDCUP SSP PRN (18:24)
[2017-04-11] MEDS: Meropenem 1 GM in Sodium Chloride 0.9% 100 ML IVPB SCH ×3 (00:30→17:39)
[2017-04-11] MEDS: Ibuprofen 800 MG TAB PO SCH ×5 (00:30→23:57)
[2017-04-11] MEDS: HYDROcodone/Acetaminophen 7.5/325 mg Tablet PO PRN ×4 (05:02→23:57)
[2017-04-11] MEDS: D5 0.9% NS w/ 20 mEq KCl 1,000 ML IV SCH ×2 (06:42→16:26)
[2017-04-11] MEDS: Multivitamin W/ Minerals 1 TAB PO SCH (08:57)
[2017-04-11] MEDS: Magnesium Oxide 400 MG TAB PO SCH (08:57)
[2017-04-11] MEDS: Folic Acid 1 MG TAB PO SCH (08:57)
[2017-04-11] MEDS: Chlorhexidine Gluconate 15 ML UDCUP SSP SCH ×3 (08:57→20:41)
[2017-04-11] MEDS: Cyclobenzaprine 10 MG TAB PO PRN ×2 (13:11→21:33)
[2017-04-12] MEDS: D5 0.9% NS w/ 20 mEq KCl 1,000 ML IV SCH ×3 (01:13→19:35)
[2017-04-12] MEDS: Meropenem 1 GM in Sodium Chloride 0.9% 100 ML IVPB SCH ×3 (02:09→17:52)
[2017-04-12] MEDS: Ibuprofen 800 MG TAB PO SCH ×2 (05:59→11:49)
[2017-04-12] MEDS: HYDROcodone/Acetaminophen 7.5/325 mg Tablet PO PRN ×4 (05:59→22:01)
[2017-04-12] MEDS: Chlorhexidine Gluconate 15 ML UDCUP SSP SCH ×3 (08:34→20:55)
[2017-04-12] MEDS: Cyclobenzaprine 10 MG TAB PO PRN ×2 (08:35→22:01)
[2017-04-12] MEDS: Folic Acid 1 MG TAB PO SCH (08:35)
[2017-04-12] MEDS: Magnesium Oxide 400 MG TAB PO SCH (08:36)
[2017-04-12] MEDS: Multivitamin W/ Minerals 1 TAB PO SCH (08:36)
[2017-04-12] MEDS: Ketorolac Tromethamine 30 MG/ML VIAL IVP SCH (17:50)
[2017-04-13] MEDS: Ketorolac Tromethamine 30 MG/ML VIAL IVP SCH ×3 (00:31→12:04)
[2017-04-13] MEDS: Meropenem 1 GM in Sodium Chloride 0.9% 100 ML IVPB SCH ×2 (00:32→09:43)
[2017-04-13] MEDS: HYDROcodone/Acetaminophen 7.5/325 mg Tablet PO PRN ×3 (02:11→09:44)
[2017-04-13] MEDS: D5 0.9% NS w/ 20 mEq KCl 1,000 ML IV SCH ×2 (03:53→13:34)
[2017-04-13 05:51] LABS: #Basophils 0.1 thou/uL (0.0-0.2); #Eosinphils 0.3 thou/uL (0.0-0.7); #Lymphocytes 3.3 thou/uL (1.20-3.40); #Monocytes 0.7 thou/uL (0.11-0.59); #Neutrophils 4.8 thou/uL (1.40-6.50); %Basophils 1.2 % (0.0-1.0); %Eosinophils 3.5 % (0.0-10.0); %Lymphocytes 35.4 % (21.0-51.0); Hematocrit 41.6 % (42.0-52.0); Mean Platelet Volume 5.9 fL (7.4-10.4); Red Blood Cell (RBC) Count 3.87 mill/uL (4.70-6.10); White Blood Cell (WBC) Count 9.3 thou/uL (4.8-10.8)
[2017-04-13] MEDS: Cyclobenzaprine 10 MG TAB PO PRN (06:02)
[2017-04-13 06:11] LABS: Anion Gap 5 mmol/L (10-20); BUN (Urea Nitrogen) 20 mg/dL (8.9-20.6); Calc. Creatinine Clearance 93 mL/min (70-130); Calcium 9.5 mg/dL (7.8-10.44); Carbon Dioxide 33 mmol/L (22-29); Chloride 104 mmol/L (98-107); Estimated GFR-MDRD Greater than 90
[2017-04-13] MEDS: Folic Acid 1 MG TAB PO SCH (09:42)
[2017-04-13] MEDS: Chlorhexidine Gluconate 15 ML UDCUP SSP SCH (09:42)
[2017-04-13] MEDS: Multivitamin W/ Minerals 1 TAB PO SCH (09:43)
[2017-04-13] MEDS: Magnesium Oxide 400 MG TAB PO SCH (09:43)
[2017-04-13 12:46] VITALS: BP 110/65; TEMP 98.4
== END 2017-04-13 13:45 | disposition home or self-care (01) | DRG 857 ==
LOC: SCSER 17:01 → SDC 21:05 → SURG A 22:30
PROVIDERS: ADMIT Dentist Oral and Maxillofacial Surgery; ATTEND Dentist Oral and Maxillofacial Surgery
PROC: 0W9500Z Drainage of Lower Jaw with Drainage Device, Open Approach (ICD-10-PCS; principal; 2017-04-02)
PROC: 02HV33Z Insertion of Infusion Device into Superior Vena Cava, Percutaneous Approach (ICD-10-PCS; 2017-04-05)
PROC: 0J913ZZ Drainage of Face Subcutaneous Tissue and Fascia, Percutaneous Approach (ICD-10-PCS; 2017-04-09)
DX: T81.4XXA Infection following a procedure, initial encounter (principal); L02.01 Cutaneous abscess of face; F17.210 Nicotine dependence, cigarettes, uncomplicated; M27.2 Inflammatory conditions of jaws; Y83.8 Other surgical procedures as the cause of abnormal reaction of the patient, or of later complication, without mention of misadventure at the time of the procedure; B96.89 Other specified bacterial agents as the cause of diseases classified elsewhere; R03.0 Elevated blood-pressure reading, without diagnosis of hypertension; F10.10 Alcohol abuse, uncomplicated; B95.2 Enterococcus as the cause of diseases classified elsewhere; B96.1 Klebsiella pneumoniae [K. pneumoniae] as the cause of diseases classified elsewhere; S02.66 Fracture of symphysis of mandible; Y09 Assault by unspecified means
CPT/HCPCS: 36415; 36569; 70487; 70492; 80048; 85025; 85610; 85730; 86780; 86803; 87070; 87077; 87186; 87205; 87389; 99285; C1751; J0360; J1100; J1885; J2001; J2185; J2270; J2405; J3010; J3475; J3490; J7050

== ENCOUNTER 2017-10-10 06:11 | Day surgery (SDC) | payer OTHER, SELFPAY ==
[2017-10-09 10:46] VITALS: BMI 23.7
[2017-10-10] MEDS ORDERED: Midazolam HCl 2 mg/2 ml Vial ONE (06:28)
[2017-10-10] MEDS ORDERED: Fentanyl 100 MCG/2 ML VIAL ONE ×3 (06:28→11:28)
[2017-10-10] MEDS ORDERED: CEFAZOLIN/Water 2 GM/20 ML SYRINGE ONE (06:32)
[2017-10-10] MEDS ORDERED: Dexamethasone 4 mg/ml Vial ONE (06:33)
[2017-10-10] MEDS ORDERED: Chlorhexidine Gluconate 15 ML UDCUP SSP ONE (06:44)
[2017-10-10] MEDS ORDERED: Lidocaine 1% w/Epinephrine 1:200K 30 ML VIAL ONE (06:44)
[2017-10-10] MEDS ORDERED: Bacitracin Zinc Ointment 30 gm TUBE ONE (09:15)
[2017-10-10] MEDS ORDERED: PROPOFOL 200 MG/20 ML VIAL ONE (14:35)
[2017-10-10] MEDS ORDERED: Ketorolac Tromethamine 30 MG/ML VIAL ONE (14:35)
[2017-10-10] MEDS ORDERED: Succinylcholine Chloride 20 MG/ML 10 ml SYRINGE FS ONE (14:35)
[2017-10-10] MEDS ORDERED: Lidocaine 1% PF 5 ML VIAL ONE (14:35)
[2017-10-10] MEDS ORDERED: diphenhydrAMINE 50 MG/ML VIAL ONE (14:35)
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
== END 2017-10-10 12:50 | disposition home or self-care (01) ==
LOC: SDC 06:11
PROVIDERS: ATTEND Dentist Oral and Maxillofacial Surgery
PROC: 0NPW04Z Removal of Internal Fixation Device from Facial Bone, Open Approach (ICD-10-PCS; principal; 2017-10-10)
DX: T84.228A Displacement of internal fixation device of other bones, initial encounter (principal); Z98.890 Other specified postprocedural states
CPT/HCPCS: J1100; J1200; J1885; J2001; J2250; J2704; J3010

== ENCOUNTER 2019-03-19 16:54 | Emergency (ER) | payer SELFPAY ==
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
--- NOTE | 2019-03-19 17:36 | RAD ---
EXAM: 3 views of the right hand COMPARISON: None HISTORY: Reduction of PIP dislocation of the small finger FINDINGS: 3 views of the right hand shows incomplete reduction of the PIP joint of the small finger w ith persistent subluxation of the digit. No fracture fragment is seen. No degenerative changes are seen. No soft tissue swelling is present. IMPRESSION: Persistent subluxation of the PIP joint of the small finger
--- NOTE | 2019-03-19 17:46 | RAD ---
EXAM: One view of the right small finger finger HISTORY: Finger pain COMPARISON: 03/19/2019 FINDINGS: There appear to been reduction of the previously seen dislocation without significant sublu xation on this view. Mild soft tissue swelling is seen. No degenerative changes are present. No radiopaque foreign body is seen. IMPRESSION: Reduction of PIP dislocation
== END 2019-03-19 17:48 | disposition home or self-care (01) ==
LOC: ERS 16:54
DX: S63.286A Dislocation of proximal interphalangeal joint of right little finger, initial encounter (principal); F17.210 Nicotine dependence, cigarettes, uncomplicated; X58.XXXA Exposure to other specified factors, initial encounter
CPT/HCPCS: 26770

== ENCOUNTER 2021-09-03 20:55 | Emergency (ER) | payer SELFPAY ==
[2021-09-03] MEDS ORDERED: Lidocaine 1% (PF) 30 ML VIAL ONE (22:16)
[2021-09-03] MEDS ORDERED: Triple Antibiotic Oint 1 GM Packet ONE (22:53)
[2021-09-03] MEDS ORDERED: Boostrix 0.5 ML (Tdap) VIAL ONE (22:53)
== END 2021-09-03 23:03 | disposition home or self-care (01) ==
LOC: ERS 20:55
DX: S60.457A Superficial foreign body of left little finger, initial encounter (principal); F17.210 Nicotine dependence, cigarettes, uncomplicated; W45.8XXA Other foreign body or object entering through skin, initial encounter
CPT/HCPCS: 64450; 90471; 90715; J2001